=== PATIENT | female | born 1975 | race Caucasian/White ===

== ENCOUNTER 2018-06-23 16:58 | Emergency (ER) | payer MEDICARE, OTHER ==
[~2018-06-23] VITALS: Wt 65.0 kg
[2018-06-23] MEDS ORDERED: ONDANSETRON 4 MG INJ IV STA (22:51)
[2018-06-23] MEDS ORDERED: SOD CHLORIDE 0.9% 1,000 ML IV STA (22:51)
[2018-06-23] MEDS ORDERED: HYDROmorphONE 1 MG/ML SYG IV STA (22:51)
--- NOTE | 2018-06-23 22:55 | ERD ---
ER Documentation Chief Complaint Chief Complaint ABD PAIN AND INTERMITTENT VAGINAL BLEEDING FOR THE PAST 4 WKS. HPI This is a 43-year-old female who is here for vaginal bleeding has been heavy for the past month off and on. She has had heavy bleeding for the past day with intermittent cramps in the pelvic region. She said she was seen at outside ER about 3 weeks ago for the same problem and she had a negative CAT scan. She garcia s not know she has fibroids. She denies being denies any nausea vomiting or GI symptoms or fever ROS All systems reviewed and are negative except as per history of present illness. Allergies Allergies: Coded Allergies: sulfamethoxazole (Verified Allergy, Unknown, 06/24/18) trimethoprim (Verified Allergy, Unknown, 06/24/18) FmHx Family History: No coronary disease Physical Exam Vitals Vital Signs Date Temp Pulse Resp B/P (MAP) Pulse Ox O2 O2 Flow FiO2 Time Delivery Rate 06/24/18 78 16 143/78 98 Room Air 01:07 (99) 06/23/18 86 16 150/82 99 Room Air 22:48 (104) 06/23/18 98.8 89 20 154/88 98 17:23 (110) Physical Exam Const: Well-developed, well-nourished Head: Atraumatic, normocephalic Eyes: Normal Conjunctiva, PERRLA, EOMI, normal sclera, no nystagmus ENT: Normal External Ears, Nose and Mouth, moist mucus membranes. Neck: Full range of motion. No meningismus, no lymphadenopathy. Resp: Clear to auscultation bilaterally, no wheezing, rhonchi, rales Cardio: Regular rate and rhythm, no murmurs, S1 S2 present Abd: Soft diffuse pelvic tenderness non distended. Normal bowel sounds, no guarding or rebound, no pulsitile abdominal masses or bruits Skin: No petechiae or rashes, no ecchymosis , no maculopapular rash Back: No midline or flank tenderness Ext: No cyanosis, or edema, FROM x 4, normal inspection, neurovascularly intact x 4 Neur: Awake and alert, STR 5/5 x 4, sensation intact x 4, no focal findings, cerebellum intact Psych: Normal Mood and Affect Result Diagram: 06/23/18 2312 06/23/18 2312 Results 24 hrs Laboratory Tests Test 06/23/18 23:12 White Blood Count 9.2 10^3/ul Red Blood Count 3.78 10^6/ul Hemoglobin 8.3 g/dl Hematocrit 27.7 % Mean Corpuscular Volume 73.3 fl Mean Corpuscular Hemoglobin 22.0 pg Mean Corpuscular Hemoglobin Concent 30.0 g/dl Red Cell Distribution Width 19.1 % Platelet Count 496 10^3/UL Mean Platelet Volume 9.8 fl Immature Granulocytes % 0.300 % Neutrophils % 65.6 % Lymphocytes % 23.9 % Monocytes % 7.9 % Eosinophils % 1.8 % Basophils % 0.5 % Nucleated Red Blood Cells % 0.0 /100WBC Immature Granulocytes # 0.030 10^3/ul Neutrophils # 6.0 10^3/ul Lymphocytes # 2.2 10^3/ul Monocytes # 0.7 10^3/ul Eosinophils # 0.2 10^3/ul Basophils # 0.1 10^3/ul Nucleated Red Blood Cells # 0.0 10^3/ul Prothrombin Time 12.4 Sec Prothrombin Time Ratio 1.0 INR International Normalized Ratio 0.91 Activated Partial Thromboplast Time 25.8 Sec Sodium Level 142 mmol/L Potassium Level 3.6 mmol/L Chloride Level 105 mmol/L Carbon Dioxide Level 27 mmol/L Anion Gap 10 Blood Urea Nitrogen 19 mg/dl Creatinine 1.07 mg/dl Est Glomerular Filtrat Rate mL/min 55 mL/min Glucose Level 103 mg/dl Calcium Level 9.3 mg/dl Serum HCG, Qualitative NEGATIVE Current Medications Medications Dose Sig/Abbie Start Time Status Last (Trade) Ordered Route PRN Stop Time Admin Dose Reason Admin Sodium 1,000 ml @ Q1H STAT 06/23/18 DC 06/23/18 Chloride 1,000 mls/hr IV 22:51 23:08 06/23/18 23:50 1 mg ONCE STAT 06/23/18 DC 06/23/18 Hydromorphone IV 22:51 23:09 HCl 06/23/18 22:54 (Dilaudid) Ondansetron 4 mg ONCE STAT 06/23/18 DC 06/23/18 HCl (Zofran IV 22:51 23:08 Inj) 06/23/18 22:54 Procedures/MDM PROCEDURE: Pelvic ultrasound. CLINICAL INDICATION: Vaginal bleeding. TECHNIQUE: Multiple sonographic images of the pelvis were obtained utilizing a transabdominal and endovaginal technique. The images were reviewed on a PACS workstation. COMPARISON: None. FINDINGS: The uterus is visualized and measures 9.6 x 5.3 x 6.9 cm. No abnormal uterine mass is identified. The endometrial echo complex is homogeneous and measures 2.6 mm. There is an intrauterine device in place. There is no evidence for free fluid. The right ovary measures 4.9 x 2.9 x 3.9 cm and demonstrates normal flow. The left ovary is not visualized. There is a h ypoechoic cyst within the right ovary measuring 3.1 x 2.6 x 3.4 cm. No adnexal masses are identified. IMPRESSION: Right ovarian 3.4 cm cyst. Left ovary not visualized. Intra device in place. .Lester Potter MD, Date Time Electronically viewed and signed by .Lester Potter MD, on 06/23/2018 23:54 .T/ CC: DAMON THOMAS DO [id number] Patient has a right ovarian cyst that needs to be followed up as could be causing her heavy vaginal bleeding. I will have her follow-up with [facility] and will prescribe Sprintec control pill to stop her vaginal bleeding. Patient is anemic with a hemoglobin of 8.3, she was advised to return if she continues to bleed Departure Diagnosis: Primary Impression: Dysfunctional uterine bleeding Additional Impression: Right ovarian cyst Condition: Stable DAMON THOMAS DO Jun 23, 2018 22:55
[2018-06-24] MEDS ORDERED: NORG1TAB14 PO (02:43)
[2018-06-24 03:16] VITALS: BP 135/86; PULSE 86; RESP 18
== END 2018-06-24 03:16 | disposition home or self-care (01) ==
LOC: E/R 16:58
DX: N93.8 Other specified abnormal uterine and vaginal bleeding (principal); N83.201 Unspecified ovarian cyst, right side; R10.2 Pelvic and perineal pain
CPT/HCPCS: 36415; 76830; 76856; 80048; 84703; 85025; 85610; 85730; 96374; 96375; 99285; J1170; J2405; J7030

== ENCOUNTER 2018-07-10 12:08 | Emergency (ER) | payer MEDICARE, OTHER ==
[~2018-07-10] VITALS: Wt 69.4 kg
[~2018-07-10 12:08] MED LIST: NORG1TAB14 PO
[2018-07-10 12:16] VITALS: BP 154/69; PULSE 99; RESP 17
[2018-07-10] MEDS ORDERED: IBUP-1542 PO (14:00)
--- NOTE | 2018-07-10 15:51 | ERD ---
ER Documentation Chief Complaint Chief Complaint BACK PAIN, HEADACHE, EAR PAIN, NECK PAIN, ON AND OFF X SEVERAL MONTHS HPI Patient is a 43-year-old female with psychiatric disease who presents with multiple complaints. She has body wide pain. She cannot give me one reason as to why she came to the emergency department today and she seems to be a host of complaints. She said that she was seen previously. Upon review of old medical records this is the patient's second visit to the emergency department. Review of the emergency department information exchange system shows frequent visits to another emergency department. She has had no treatment as of yet. ROS All systems reviewed and are negative except as per history of present illness. Medications Home Meds Active Scripts Ibuprofen* (Motrin*) 600 Mg Tab, 600 MG PO Q6H PRN for PAIN AND OR ELEVATED TEMP, #30 TAB Prov:YOGI PERALTA MD 07/10/18 Norgestimate-Ethinyl Estradiol (Sprintec 28 Day Tablet) 1 Each Tablet, 3 EACH PO every day for 3 Days, #2 PACKET 0 Refills 3 po Qd x 3 days, then 1 po QD, skip the last week of pills and restart new pack at 1 po QD Prov:DAMON THOMAS DO 06/24/18 Allergies Allergies: Coded Allergies: sulfamethoxazole (Verified Allergy, Unknown, 06/24/18) trimethoprim (Verified Allergy, Unknown, 06/24/18) PMhx/Soc History of Surgery: No Anesthesia Reaction: No Hx Neurological Disorder: No Hx Respiratory Disorders: No Hx Cardiac Disorders: No Hx Psychiatric Problems: Yes Hx Miscellaneous Medical Probl: Yes (SCHIZO,SUBSTANCE ABUSE ) Hx Alcohol Use: Yes (BEER ) Hx Substance Use: Yes (COCAIN AND METH ) Hx Tobacco Use: Yes Smoking Status: Current every day smoker FmHx Family History: No diabetes Physical Exam Vitals Vital Signs Date Temp Pulse Resp B/P (MAP) Pulse Ox O2 O2 Flow FiO2 Time Delivery Rate 07/10/18 98.3 99 17 154/69 100 12:16 (97) Physical Exam Const: No acute distress Head: Atraumatic Eyes: Normal Conjunctiva ENT: Normal External Ears, Nose and Mouth. Neck: Full range of motion. No meningismus. Resp: Clear to auscultation bilaterally Cardio: Regular rate and rhythm, no murmurs Abd: Soft, non tender, non distended. Normal bowel sounds Skin: No petechiae or rashes Back: No midline or flank tenderness Ext: No cyanosis, or edema Neur: Awake and alert Psych: No suicidal or homicidal ideation Procedures/MDM Patient is a 43-year-old female who presents with multiple complaints. I doubt serious etiology of her pain at this time. I believe outpatient management is appropriate. The patient will need to follow-up closely with her primary doctor. She will be given a prescription for ibuprofen for pain. I doubt serious intra-abdominal process such as appendicitis, cholecystitis, pancreatitis. Departure Diagnosis: Primary Impression: Pain Condition: Fair Patient Instructions: Back Pain (Acute Or Chronic) Referrals: Your doctor Additional Instructions: Call your primary care doctor TOMORROW for an appointment during the next 1 WEEK.Tell the yarn examiner skeins that you were referred from this facility.See the doctor sooner or return here if your condition worsens before your appointment time. YOGI PERALTA MD Jul 10, 2018 15:51
== END 2018-07-10 14:37 | disposition home or self-care (01) ==
LOC: FTE 12:08
DX: M54.9 Dorsalgia, unspecified (principal); F17.210 Nicotine dependence, cigarettes, uncomplicated
CPT/HCPCS: 99282

== ENCOUNTER 2018-09-17 23:34 | Emergency (ER) | payer MEDICARE, OTHER ==
[~2018-09-17] VITALS: Ht 160 cm; Wt 71.2 kg
[~2018-09-17 23:34] MED LIST changes: +IBUP-1542 PO
[2018-09-17 23:42] VITALS: Ht 160 cm; Wt 71.2 kg
--- NOTE | 2018-09-18 04:09 | ERD ---
ER Documentation Chief Complaint Chief Complaint C/O GENERALIZED PAIN HPI The patient is a 43-year-old female, presenting to the ER because of general body pain, headache, abdominal discomfort for the last 3 weeks. She had similar symptoms previously. She was more interesting in sleeping and did not really want to provide any history. She had presented to the ER previously for similar symptoms. She denies fever, chills, neck pain, chest pain, dyspnea, vomiting, dysuria, diarrhea, constipation. She is smokes and drinks does illicit drug Past medical history: Schizophrenia, depression Past surgical history: None ROS All systems reviewed and are negative except as per history of present illness. Medications Home Meds Active Scripts Ibuprofen* (Motrin*) 600 Mg Tab, 600 MG PO Q6H PRN for PAIN AND OR ELEVATED TEMP, #20 TAB Prov:RENNY TOMLIN MD 09/18/18 Ibuprofen* (Motrin*) 600 Mg Tab, 600 MG PO Q6H PRN for PAIN AND OR ELEVATED TEMP, #30 TAB Prov:YOGI PERALTA MD 07/10/18 Norgestimate-Ethinyl Estradiol (Sprintec 28 Day Tablet) 1 Each Tablet, 3 EACH PO every day for 3 Days, #2 PACKET 0 Refills 3 po Qd x 3 days, then 1 po QD, skip the last week of pills and restart new pack at 1 po QD Prov:DAMON THOMAS DO 06/24/18 Allergies Allergies: Coded Allergies: sulfamethoxazole (Verified Allergy, Unknown, 06/24/18) trimethoprim (Verified Allergy, Unknown, 06/24/18) PMhx/Soc History of Surgery: No Anesthesia Reaction: No Hx Neurological Disorder: No Hx Respiratory Disorders: No Hx Cardiac Disorders: No Hx Psychiatric Problems: Yes Hx Miscellaneous Medical Probl: Yes (SCHIZO,SUBSTANCE ABUSE ) Hx Alcohol Use: Yes (BEER ) Hx Substance Use: Yes (COCAIN AND METH ) Hx Tobacco Use: Yes Physical Exam Vitals Vital Signs Date Temp Pulse Resp B/P (MAP) Pulse Ox O2 O2 Flow FiO2 Time Delivery Rate 09/18/18 97.8 79 19 166/82 99 Room Air 04:24 (110) 09/17/18 97.8 89 19 185/83 99 23:42 (117) Physical Exam Const: No acute distress. Head: Atraumatic. Eyes: Normal Conjunctiva. ENT: Normal External Ears, Nose and Mouth. Neck: Full range of motion. No meningismus. Resp: Clear to auscultation bilaterally. Cardio: Regular rate and rhythm. Abd: Soft, non distended, normal bowel sounds, non tender. Skin: No petechiae or rashes. Back: No midline or flank tenderness. Ext: No cyanosis, or edema. Neur: Awake and alert. No focal deficit Psych: Normal Mood and Affect. Procedures/MDM MEDICAL MAKING DECISION: The patient is a 43-year-old female, presenting with general body pain, is stable for outpatient follow-up and I do not suspect any acute abdomen The differential diagnoses considered include but are not limited to cholelithiasis, cholecystitis, choledocholithiasis, cholangitis, pancreatitis, hepatitis, gastritis, peptic ulcer disease, gastric ulcer, appendicitis, cystitis, diverticulitis, partial small bowel obstruction. Departure Diagnosis: Primary Impression: Total body pain Condition: Good Comments The patient's blood pressure was elevated (>120/80) but appears stable without evidence of hypertension emergency or urgency. The patient was counseled about the risks of hypertension and urged to pursue outpatient monitoring and therapy within a week with their primary care physician. She was discharged with Motrin I discussed the findings with the patient. I advised the patient to follow-up with the primary physician in about 2-3 days, sooner if needed and return if any concern. Disclaimer: Inadvertent spelling and grammatical errors are likely due to EHR/dictation software use and do not reflect on the overall quality of patient care. Also, please note that the electronic time recorded on this note does not necessarily reflect the actual time of the patient encounter. RENNY TOMLIN MD September 18, 2018 04:09
[2018-09-18] MEDS ORDERED: IBUP-1542 PO (04:32)
[2018-09-18 05:47] VITALS: BP 149/91; PULSE 88; RESP 19
== END 2018-09-18 07:10 | disposition home or self-care (01) ==
LOC: E/R 23:34
DX: R52 Pain, unspecified (principal); Z87.891 Personal history of nicotine dependence
CPT/HCPCS: 99282

== ENCOUNTER 2019-01-10 22:46 | Emergency (ER) | payer MEDICARE, OTHER ==
[~2019-01-10] VITALS: Ht 160 cm; Wt 69.4 kg
[~2019-01-10 22:46] MED LIST changes: +CIPR500T4 PO; +IBUP-1561 PO; +ONDA4TAB14 PO
[2019-01-10 22:59] VITALS: Ht 160 cm; Wt 69.4 kg
[2019-01-10] MEDS ORDERED: KETOROLAC 30 MG INJ IV STA (23:43)
[2019-01-10] MEDS ORDERED: SOD CHLORIDE 0.9% 1,000 ML IV STA (23:43)
[2019-01-11 02:23] VITALS: BP 159/80; PULSE 70; RESP 18
== END 2019-01-11 02:59 | disposition home or self-care (01) ==
LOC: FTE 22:46
DX: K70.30 Alcoholic cirrhosis of liver without ascites (principal); F17.210 Nicotine dependence, cigarettes, uncomplicated
CPT/HCPCS: 80053; 81001; 81025; 83690; 85025; J1885; J7030; 36415; 96374